=== PATIENT | female | born 1965 | race Caucasian/White ===

== ENCOUNTER 2020-12-20 16:28 | Observation (INO) | payer OTHER ==
[2020-12-20 17:03] LABS: Basophils % 0.8 % (0-1.3); Hematocrit 40.2 % (36.0-45.0); Lymphocytes % 25.5 % (15.3-44.8); MPV 6.7 fL (7.6-11.3); RBC Red Blood Cell Count 4.69 M/uL (3.86-4.86)
[2020-12-20 17:09] LABS: Protime INR 0.93
[2020-12-20] MEDS ORDERED: NITROGLYCERIN 0.4 MG/TAB SL ONE (17:09)
--- NOTE | 2020-12-20 17:15 | RAD REPORT ---
EXAM DESCRIPTION: RAD - Chest Single View - 12/20/2020 5:07 pm CLINICAL HISTORY: CHEST PAIN Chest pain. COMPARISON: No comparisons FINDINGS: Portable technique limits examination quality. The lungs are grossly clear. The heart is normal in size. No displaced fractures. IMPRESSION: No acute intrathoracic process suspected.
[2020-12-20 17:30] LABS: Albumin 3.9 g/dL (3.4-5.0); Bilirubin Direct 0.1 mg/dL (0-0.2); Bilirubin Total 0.4 mg/dL (0.2-1.0); Magnesium 1.7 mg/dL (1.8-2.4); Potassium 4.1 mmol/L (3.5-5.1); Protein, Total 7.7 g/dL (6.4-8.2); Troponin (Emerg Dept Use Only) 0.02 ng/mL (0.0-0.045)
[2020-12-20] MEDS ORDERED: NA CHLORIDE 0.9% 1,000 ML ONE (17:30)
--- NOTE | 2020-12-20 17:45 | RAD REPORT ---
EXAM DESCRIPTION: CT - Head Brain Wo Cont - 12/20/2020 5:35 pm CLINICAL HISTORY: HEADACHE Hypertension, headache, drowsiness COMPARISON: No comparisons TECHNIQUE: All CT scans are performed using dose optimization technique as appropriate and may inclu de automated exposure control or mA/KV adjustment according to patient size. FINDINGS: No intracranial hemorrhage, hydrocephalus or extra-axial fluid collection.No areas of brai n edema or evidence of midline shift. The paranasal sinuses and mastoids are clear. The calvarium is intact. IMPRESSION: No acute intracranial abnormality.
--- NOTE | 2020-12-20 18:16 | ER ---
Nurse's Notes [facility] Name: Yvette Martino Age: 55 yrs Sex: Female : 1965 Arrival Date: 12/20/2020 Time: 16:29 Bed 24 Private MD: Tino Kaur T Diagnosis: Chest pain, unspecified;Hypertensive heart disease without heart failure Presentation: 12/20 16:31 Chief complaint: Patient states: midsternal chest pain started 3 hours ago. Pt is sv clammy at this time. Risk Assessment: Do you want to hurt yourself or someone else? Patient reports no desire to harm self or others. Onset of symptoms was December 20, 2020. 16:31 Method Of Arrival: Ambulatory sv 16:31 Acuity: JAMIE 2 sv 16:32 Coronavirus screen: Client denies travel out of the [place] in the last 14 days. At this sv time, the client does not indicate any symptoms associated with coronavirus-19. Ebola Screen: No symptoms or risks identified at this time. Initial Sepsis Screen: Does the patient meet any 2 criteria? RR > 20 per min. HR > 90 bpm. Yes Does the patient have a suspected source of infection? No. Patient's initial sepsis screen is negative. Historical: - Allergies: 16:31 PENICILLINS; sv 16:31 CEPHALOSPORINS; sv - Home Meds: 19:06 metformin 750 mg Oral Tb24 1 tab twice a day [Active]; Novolin 70/30 InnoLet Insulin hb 100 unit/mL (70-30) Sub-Q inpn 50 unit twice a day [Active]; losartan 50 mg oral tab 1 tab once daily [Active]; - PMHx: 16:31 Diabetes mellitus; Hypertensive disorder; sv 19:06 DM2; HTN; hb - Immunization history:: Client reports receiving the 1st dose of the Covid vaccine. - Social history:: Smoking status: Patient denies any tobacco usage or history of. Screenin:56 Abuse screen: Denies threats or abuse. Denies injuries from another. Nutritional hb screening: No deficits noted. Tuberculosis screening: No symptoms or risk factors identified. Fall Risk None identified. Assessment: 16:57 General: Appears in no apparent distress. uncomfortable, Behavior is calm, cooperative. hb Pain: Pain currently is 7 out of 10 on a pain scale. Neuro: Level of Consciousness is awake, alert, obeys commands, Oriented to person, place, time, situation. Cardiovascular: Reports chest pain, shortness of breath, Patient's skin is warm and dry. Respiratory: Respiratory effort is even, unlabored, Respiratory pattern is regular, symmetrical. GI: No signs and/or symptoms were reported involving the gastrointestinal system. : No signs and/or symptoms were reported regarding the genitourinary system. EENT: No signs and/or symptoms were reported regarding the EENT system. Derm: Skin is pink, warm \\T\\ dry. Musculoskeletal: No signs and/or symptoms reported regarding the musculoskeletal system. 17:59 Reassessment: Patient appears in no apparent distress at this time. Patient and/or hb family updated on plan of care and expected duration. Pain level reassessed. Patient is alert, oriented x 3, equal unlabored respirations, skin warm/dry/pink. 18:45 Reassessment: Pt c/o chest pain and headache 6-7/10. Dr. Hui notified, morphine hb and zofran administered as ordered. Admission ordered, awaiting hospitalist at this time. Vital Signs: 16:32 BP 210 / 90; Pulse 102; Resp 22; Pulse Ox 99% ; Weight 92.08 kg; Height 5 ft. 6 in. sv (167.64 cm); Pain 8/10; 18:46 BP 156 / 75; Pulse 91; Resp 15; Pulse Ox 99% on R/A; Pain 7/10; hb 16:32 Body Mass Index 32.76 (92.08 kg, 167.64 cm) sv ED Course: 16:29 Patient arrived in ED. as 16:29 Tino Kaur MD is Private Physician. as 16:31 Triage completed. sv 16:32 Arm band placed on. sv 16:35 Devonte Mendoza PA is PHCP. cp 16:35 Devonte Hui MD is Attending Physician. cp 16:45 EKG done, by ED staff, reviewed by Devonte THURSTON. em1 16:50 Patient maintains SpO2 saturation greater than 95% on room air. hb 16:51 Inserted saline lock: 20 gauge in left antecubital area, using aseptic technique. Blood hb collected. 16:55 Marissa Roman RN is Primary Nurse. hb 16:56 Patient has correct armband on for positive identification. Bed in low position. Side hb rails up X 1. equipment monitor phototypesetting on. Pulse ox on. NIBP on. 17:07 XRAY Chest (1 view) In Process Unspecified. EDMS 17:19 COVID-19 : Document "Date of Symptom Onset" if Symptomatic. Sent. hb 17:35 CT Head Brain wo Cont In Process Unspecified. EDMS 18:15 Shun Kwan PA is Hospitalizing Provider. cp 12/21 03:04 René Catalan is Hospitalizing Provider. cp Administered Medications: 12/20 07:30 Drug: Nitroglycerin 0.4 mg Route: Sublingual; hb 16:51 Drug: Nitroglycerin 0.4 mg Route: Sublingual; hb 17:13 Drug: Nitroglycerin 0.4 mg Route: Sublingual; hb 18:43 Follow up: Response: No adverse reaction hb 17:19 Drug: Tylenol 1000 mg Route: PO; hb 18:44 Follow up: Response: No adverse reaction hb 17:19 Drug: NS 0.9% 500 ml Route: IV; Rate: bolus; Site: left antecubital; hb 18:43 Follow up: Response: No adverse reaction; IV Status: Completed infusion; IV Intake: hb 500ml 17:55 Drug: Magnesium Sulfate 1 grams Route: IVPB; Infused Over: 1 hrs; Site: right hb antecubital; 17:55 Drug: Aspirin Chewable Tablet 324 mg Route: PO; hb 18:43 Follow up: Response: No adverse reaction hb 18:43 Drug: NS 0.9% 500 ml Route: IV; Rate: 125 ml/hr; Site: left antecubital; hb 18:43 Drug: morphine 4 mg Route: IVP; Site: left antecubital; hb 18:43 Drug: Zofran (Ondansetron) 4 mg Route: IVP; Site: left antecubital; hb Intake: 18:43 IV: 500ml; Total: 500ml. hb Outcome: 18:16 Decision to Hospitalize by Provider. cp 12/21 20:45 Patient left the ED. wg Signatures: Dispatcher [employer] EDMS Manju Ernst RN RN sv Martinez, Amelia as Martinez, Eric em1 Devonte Mendoza PA PA cp Marissa Roman RN RN Ceferino Zarate wg
--- NOTE | 2020-12-20 18:17 | EDPHYS ---
Physician Documentation [facility] Name: Yvette Martino Age: 55 yrs Sex: Female : 1965 Arrival Date: 12/20/2020 Time: 16:29 Bed 24 Private MD: Tino Kaur T ED Physician Devonte Hui HPI: 12/20 16:45 This 55 yrs old Female presents to ER via Ambulatory with complaints of Chest cp Pain. 16:45 The patient or guardian reports chest pain that is located primarily in the substernal cp area. 16:45 Onset: 3 hour(s) ago. The pain does not radiate. Associated signs and symptoms: cp Pertinent positives: diaphoresis, Pertinent negatives: abdominal pain, dizziness, lower extremity pain, lower extremity swelling, shortness of breath, syncope. The chest pain is described as a pressure. Duration: The patient or guardian reports a single episode, that is still ongoing, and unchanged. Severity of pain: in the emergency department the pain is unchanged despite home interventions. Historical: - Allergies: 16:31 PENICILLINS; sv 16:31 CEPHALOSPORINS; sv - Home Meds: 19:06 metformin 750 mg Oral Tb24 1 tab twice a day [Active]; Novolin 70/30 InnoLet Insulin hb 100 unit/mL (70-30) Sub-Q inpn 50 unit twice a day [Active]; losartan 50 mg oral tab 1 tab once daily [Active]; - PMHx: 16:31 Diabetes mellitus; Hypertensive disorder; sv 19:06 DM2; HTN; hb - Immunization history:: Client reports receiving the 1st dose of the Covid vaccine. - Social history:: Smoking status: Patient denies any tobacco usage or history of. ROS: 16:47 Constitutional: Negative for body aches, fever, poor PO intake. cp 16:47 Cardiovascular: Positive for chest pain. cp 16:47 Neuro: Positive for headache, Negative for altered mental status, syncope, weakness. 16:47 Eyes: Negative for injury, pain, redness, and discharge. cp 16:47 ENT: Negative for ear pain, sore throat, difficulty swallowing, difficulty handling cp secretions. 16:47 Respiratory: Negative for cough, shortness of breath, wheezing. 16:47 Abdomen/GI: Negative for abdominal pain, nausea, vomiting, and diarrhea. 16:47 Back: Negative for radiated pain. 16:47 All other systems are negative. Exam: 16:47 ECG was reviewed by the Attending Physician. cp 16:55 Constitutional: The patient appears in no acute distress, alert, awake, cp non-diaphoretic, non-toxic, well developed, well nourished. 16:55 Head/Face: Normocephalic, atraumatic. cp 16:55 Eyes: Periorbital structures: appear normal, Conjunctiva: normal, no exudate, no injection, Sclera: no appreciated abnormality, Lids and lashes: appear normal, bilaterally. 16:55 ENT: External ear(s): are unremarkable, Nose: is normal, Mouth: Lips: moist, Oral mucosa: moist, Posterior pharynx: Airway: no evidence of obstruction, patent. 16:55 Neck: ROM/movement: is normal, is supple, without pain, no range of motions limitations. 16:55 Chest/axilla: Inspection: normal, Palpation: is normal, no crepitus, no tenderness. 16:55 Cardiovascular: Rate: tachycardic, Rhythm: regular, Heart sounds: murmur, not appreciated, Edema: is not appreciated, JVD: is not appreciated. 16:55 Respiratory: the patient does not display signs of respiratory distress, Respirations: normal, no use of accessory muscles, no retractions, labored breathing, is not present, Breath sounds: are clear throughout, no decreased breath sounds, no stridor, no wheezing. 16:55 Abdomen/GI: Inspection: abdomen appears normal, Palpation: abdomen is soft and non-tender, in all quadrants. 16:55 Back: pain, is absent, ROM is normal. 16:55 Neuro: Orientation: to person, place \\T\\ time. Mentation: is normal, Cerebellar function: is grossly normal, Motor: moves all fours, strength is normal, Sensation: is normal. Vital Signs: 16:32 BP 210 / 90; Pulse 102; Resp 22; Pulse Ox 99% ; Weight 92.08 kg; Height 5 ft. 6 in. sv (167.64 cm); Pain 8/10; 18:46 BP 156 / 75; Pulse 91; Resp 15; Pulse Ox 99% on R/A; Pain 7/10; hb 16:32 Body Mass Index 32.76 (92.08 kg, 167.64 cm) sv MDM: 16:39 Patient medically screened. cp 17:00 Differential diagnosis: abnormal EKG, acute myocardial infarction, costochondritis, cp pancreatitis, peptic ulcer disease, pericarditis, pneumonia, pneumothorax, pulmonary embolus, stable angina, thoracic aortic disection, unstable angina. 18:00 Data reviewed: vital signs, nurses notes, lab test result(s), EKG, radiologic studies, cp plain films. 18:00 Test interpretation: by ED physician or midlevel provider: ECG, plain radiologic cp studies. 18:15 The patient was given aspirin in the Emergency Department. cp 18:15 Physician consultation: Shun THURSTON was called at 18:15, was contacted at 18:15, cp regarding admission, to the telemetry unit. patient's condition. 12/20 16:39 Order name: Basic Metabolic Panel; Complete Time: 17:47 cp 12/20 17:47 Interpretation: Normal except: NA 133; GLUC 293; GFR 84. 12/20 16:39 Order name: CBC with Diff; Complete Time: 17:47 12/20 17:48 Interpretation: Normal except: MPV 6.7. cp 12/20 16:39 Order name: LFT's; Complete Time: 17:47 cp 12/20 16:39 Order name: Magnesium; Complete Time: 17:47 cp 12/20 16:39 Order name: NT PRO-BNP; Complete Time: 17:47 cp 12/20 16:39 Order name: PT-INR; Complete Time: 17:47 12/20 16:39 Order name: Troponin (emerg Dept Use Only); Complete Time: 17:47 12/20 17:48 Interpretation: Within normal limits: TROPED 0.02. 12/20 16:48 Order name: COVID-19 : Document "Date of Symptom Onset" if Symptomatic. 12/20 18:48 Order name: SARS-COV-2 RT PCR [facility] 12/20 22:43 Order name: Glucose, Ancillary Testing [facility] 12/20 23:22 Order name: Troponin I [facility] 12/21 02:59 Order name: CBC with Automated Diff [facility] 12/21 03:02 Order name: Troponin I [facility] 12/20 16:39 Order name: XRAY Chest (1 view); Complete Time: 17:47 12/20 16:48 Order name: CT Head Brain wo Cont; Complete Time: 17:47 cp 12/21 03:14 Order name: Comprehensive Metabolic Panel [facility] 12/21 03:14 Order name: Phosphorus [facility] 12/21 03:14 Order name: Lipid Profile [facility] 12/21 03:14 Order name: T4 Free [facility] 12/21 03:14 Order name: Magnesium [facility] 12/21 03:14 Order name: Thyroid Stimulating Hormone [facility] 12/21 03:24 Order name: LDL, Direct [facility] 12/21 03:32 Order name: Hemoglobin A1c [facility] 12/21 10:23 Order name: NM [facility] 12/21 14:41 Order name: Glucose, Ancillary Testing [facility] 12/20 16:39 Order name: EKG; Complete Time: 16:40 cp 12/20 16:39 Order name: Cardiac monitoring; Complete Time: 16:56 cp 12/20 16:39 Order name: EKG - Nurse/Tech; Complete Time: 16:45 cp 12/20 16:39 Order name: IV Saline Lock; Complete Time: 16:56 cp 12/20 16:39 Order name: Labs collected and sent; Complete Time: 16:56 cp 12/20 16:39 Order name: O2 Per Protocol; Complete Time: 16:56 cp 12/20 16:39 Order name: O2 Sat Monitoring; Complete Time: 16:56 cp EC:47 Rate is 99 beats/min. Rhythm is regular. SD interval is normal. QRS interval is normal. cp QT interval is normal. T waves are Inverted in lead aVR. Interpreted by me. Reviewed by me. Administered Medications: 07:30 Drug: Nitroglycerin 0.4 mg Route: Sublingual; hb 16:51 Drug: Nitroglycerin 0.4 mg Route: Sublingual; hb 17:13 Drug: Nitroglycerin 0.4 mg Route: Sublingual; hb 18:43 Follow up: Response: No adverse reaction hb 17:19 Drug: Tylenol 1000 mg Route: PO; hb 18:44 Follow up: Response: No adverse reaction hb 17:19 Drug: NS 0.9% 500 ml Route: IV; Rate: bolus; Site: left antecubital; hb 18:43 Follow up: Response: No adverse reaction; IV Status: Completed infusion; IV Intake: hb 500ml 17:55 Drug: Magnesium Sulfate 1 grams Route: IVPB; Infused Over: 1 hrs; Site: right hb antecubital; 17:55 Drug: Aspirin Chewable Tablet 324 mg Route: PO; hb 18:43 Follow up: Response: No adverse reaction hb 18:43 Drug: NS 0.9% 500 ml Route: IV; Rate: 125 ml/hr; Site: left antecubital; hb 18:43 Drug: morphine 4 mg Route: IVP; Site: left antecubital; hb 18:43 Drug: Zofran (Ondansetron) 4 mg Route: IVP; Site: left antecubital; hb Disposition: 12/22 05:23 Co-signature as Attending Physician, Devonte Hui MD I agree with the assessment and jaqui plan of care. Disposition Summary: 12/20/20 18:16 Hospitalization Ordered Hospitalization Status: Observation cp Condition: Stable cp Problem: new cp Symptoms: have improved cp Bed/Room Type: Standard cp Location: [facility] ER HOLD(12/20/20 19:44) tl1 Room Assignment: ERHOLD-(12/20/20 19:44) tl1 Provider: René Catalan(12/21/20 03:04) cp Diagnosis - Chest pain, unspecified cp - Hypertensive heart disease without heart failure cp Forms: - Medication Reconciliation Form cp - SBAR form cp Signatures: Dispatcher [employer] Manju Fields, RN NADIA Devonte Hui MD MD cha Lasagna, Tonya RN RN 1 Devonte Mendoza PA PA cp Marissa Roman RN RN Corrections: (The following items were deleted from the chart) 12/20 17:50 16:48 CORONAVIRUS ordered. EDPA EDPA 19:44 18:16 Telemetry/MedSurg (observation) cp tl1 19:44 18:16 cp tl1 12/21 03:04 12/20 18:16 Shun Kwan cp cp
[2020-12-20] MEDS ORDERED: MAGNESIUM SULFATE 1 gm IVPB 1 GM/100 ML BAG IV ONE (18:48)
[2020-12-20] MEDS ORDERED: ASPIRIN 81 MG CHEWABLE TABLET ONE (18:48)
[2020-12-20] MEDS ORDERED: ONDANSETRON 4 MG/2 ML VIAL ONE (19:00)
[2020-12-20] MEDS ORDERED: MORPHINE 4 MG/ML SYR ONE (19:00)
--- NOTE | 2020-12-20 19:45 | P.HP ---
Certification for Inpatient Patient admitted to: Observation With expected LOS: <2 Midnights Patient will require the following post-hospital care: None Practitioner: I am a practitioner with admitting privileges, knowledge of patient current condition, hospital course, and medical plan of care. Services: Services provided to patient in accordance with Admission requirements found in Title 42 Section 412.3 of the Code of Federal Regulations Patient History Date of Service: 12/20/20 Reason for admission: ACS rule out History of Present Illness: Ms. Martino is a 55 yo F with DM and HTN who presents with 8/10 substernal chest pain that began at rest. She says she was sitting down at work when her chest started huring and her head started pounding. She describes the pain as a knot in the center of her chest, chest pressure, and radiation to her right side. She says it does not feel like indigestion or heartburn. Pain was relieved after receiving sublingual nitroglycerin x2 in the ED. On arrival, BP was 210/90, now improved after NTG. Denies nausea, diaphoresis. Dad had a history of heart disease. Na 133. GFR 84. Glu 293. Mg 1.7. Home medications list reviewed: Yes - Past Medical/Surgical History Has patient received pneumonia vaccine in the past: No Diabetic: Yes -: HTN -: DM -: 2 C sections - Social History Smoking Status: Never smoker Alcohol use: No CD- Drugs: No Caffeine use: No Place of Residence: Home Review of Systems 10-point ROS is otherwise unremarkable Cardiovascular: Chest Pain Physical Examination - Physical Exam General: Alert, In no apparent distress HEENT: Atraumatic, PERRLA, Mucous membr. moist/pink, EOMI, Sclerae nonicteric Neck: Supple, 2+ carotid pulse no bruit, No LAD, Without JVD or thyroid abnormality Respiratory: Clear to auscultation bilaterally, Normal air movement Cardiovascular: Regular rate/rhythm, Normal S1 S2 Gastrointestinal: Normal bowel sounds, No tenderness Musculoskeletal: No tenderness Integumentary: No rashes Neurological: Normal gait, Normal speech, Normal strength at 5/5 x4 extr, Normal tone, Normal affect Lymphatics: No axilla or inguinal lymphadenopathy - Studies Laboratory Data (last 24 hrs) 12/20/20 16:52: PT 10.7, INR 0.93 12/20/20 16:52: WBC 7.90, Hgb 13.9, Hct 40.2, Plt Count 252 12/20/20 16:52: Sodium 133 L, Potassium 4.1, BUN 18, Creatinine 0.72, Glucose 293 H, Magnesium 1.7 L, Total Bilirubin 0.4, AST 18, ALT 36, Alkaline Phosphat ase 96 Assessment and Plan - Problems (Diagnosis) (1) Chest pain Current Visit: Yes Status: Acute Qualifiers: Chest pain type: unspecified Qualified Code(s): R07.9 - Chest pain, unspecified (2) HTN (hypertension) Current Visit: Yes Status: Chronic Qualifiers: Hypertension type: primary hypertension Qualified Code(s): I10 - Essential (primary) hypertension (3) Diabetes Current Visit: Yes Status: Chronic Qualifiers: Diabetes mellitus type: type 2 Diabetes mellitus alf insulin use: with exterminator helper termite use Diabetes mellitus complication status: without complication Qualified Code(s): E11.9 - Type 2 diabetes mellitus without complications; Z79.4 - roasterman (current) use of insulin - Plan on telemetry, trend troponins, repeat EKG in AM PRN morphine and NTG as needed daily ASA, BB, statin lipid and thyroid panel pending sliding scale insulin and accuchecks, A1c pending DVT ppx Discharge Plan: Home Plan to discharge in: 24 Hours - Advance Directives Does patient have a Living Will: No Does patient have a Durable POA for Healthcare: No - Code Status/Comfort Care Code Status Assessed: Yes (full code ) Critical Care: No Time Spent Managing Pts Care (In Minutes): 70
[2020-12-20] MEDS ORDERED: GABAPENTIN 300 MG CAP PO SCH (22:24)
[2020-12-20] MEDS ORDERED: ATORVASTATIN 40 MG TAB PO SCH (22:24)
[2020-12-20] MEDS ORDERED: ONDANSETRON 4 MG/2 ML VIAL IV PRN (22:24)
[2020-12-20] MEDS ORDERED: NITROGLYCERIN 0.4 MG/TAB SL PRN (22:24)
[2020-12-20] MEDS: INSULIN -REGULAR HUMAN 50 UNIT/0.5 ML ML SQ SCH (22:24)
[2020-12-20] MEDS ORDERED: HYDRALAZINE HCL 20 MG/ML VIAL IV PRN (22:24)
[2020-12-20] MEDS ORDERED: QUETIAPINE 100MG TAB PO SCH (22:24)
[2020-12-20 22:47] VITALS: BMI 32.8
[2020-12-20] MEDS ORDERED: ATORVASTATIN 20 MG TAB ONE (23:00)
[2020-12-20] MEDS ORDERED: INSULIN -REGULAR HUMAN 50 UNIT/0.5 ML ML ONE (23:01)
[2020-12-20 23:43] VITALS: BP 171/78; TEMP 98.3
[2020-12-20] MEDS: ACETAMINOPHEN 500 MG TAB PO PRN (23:50)
[2020-12-21] MEDS ORDERED: ACETAMINOPHEN 500 MG TAB ONE ×3 (00:17→17:47)
[2020-12-21] MEDS ORDERED: MORPHINE 2 MG/ML SYR IV PRN ×2 (01:00→15:00)
[2020-12-21 02:50] LABS: Absolute Lymphocytes (CBC) 2.3 K/uL (0.7-4.9); Basophils % 0.6 % (0-1.3); Hematocrit 35.4 % (36.0-45.0); Lymphocytes % 31.7 % (15.3-44.8); MPV 7.1 fL (7.6-11.3)
[2020-12-21 03:09] LABS: ALT/SGPT 31 U/L (12-78); AST/SGOT 15 U/L (15-37); Albumin 3.4 g/dL (3.4-5.0); Alkaline Phosphatase 80 U/L (45-117); BUN Blood Urea Nitrogen 14 mg/dL (7-18); Bicarbonate 28 mmol/L (21-32); Bilirubin Total 0.3 mg/dL (0.2-1.0); Glucose Level 318 mg/dL (74-106); HDL Cholesterol 29 mg/dL (40-60); Magnesium 1.7 mg/dL (1.8-2.4); Phosphorus 3.6 mg/dL (2.5-4.9); Potassium 4.1 mmol/L (3.5-5.1); Protein, Total 6.7 g/dL (6.4-8.2); Sodium Level 136 mmol/L (136-145)
[2020-12-21 03:24] LABS: LDL, Direct 62 mg/dL (100-129)
[2020-12-21] MEDS ORDERED: METOPROLOL TAR 25 MG TAB PO SCH (06:00)
[2020-12-21] MEDS ORDERED: ENOXAPARIN 40 MG/0.4 ML SQ SCH (09:00)
[2020-12-21] MEDS ORDERED: REGADENOSON 0.4 MG/5 ML SYR IV ONE (09:00)
[2020-12-21] MEDS ORDERED: ASPIRIN EC 81 MG TAB PO SCH (09:00)
[2020-12-21] MEDS: ACETAMINOPHEN 500 MG TAB PO PRN ×2 (09:58→17:30)
--- NOTE | 2020-12-21 10:23 | RAD REPORT ---
EXAM DESCRIPTION: NM - Rest Stress Cardiac Imaging - 12/21/2020 10:12 am CLINICAL HISTORY: chest pain Chest pain. COMPARISON: No comparisons TECHNIQUE: The patient was administered approximately 10mCi of Tc 99m Sestamibi prior to resting SPE CT imaging of the heart. The patient was then administered approximately 30 mCi of Tc 99m Sestamibi f ollowing exercise or pharmacologic stress. Multiplanar SPECT images were reviewed. FINDINGS: No stress induced ischemic defect is seen to suggest stress induced ischemia. No fixed def ect is seen to suggest hibernating myocardium or scarred myocardium. The end diastolic volume is 70 ml, the end systolic volume is 16 ml, and the ejection fraction is 77 %. IMPRESSION: No stress induced ischemia.
[2020-12-21] MEDS: INSULIN -REGULAR HUMAN 50 UNIT/0.5 ML ML SQ SCH (14:50)
[2020-12-21] MEDS ORDERED: ASPIRIN EC 81 MG TAB PO ONE (15:03)
[2020-12-21] MEDS ORDERED: INSULIN -REGULAR HUMAN 50 UNIT/0.5 ML ML ONE (15:04)
[2020-12-21] MEDS ORDERED: METOPROLOL TAR 25 MG TAB ONE (15:04)
[2020-12-21] MEDS ORDERED: ENOXAPARIN 40 MG/0.4 ML SQ ONE (15:06)
[2020-12-21 16:45] VITALS: O2SAT 95
--- NOTE | 2020-12-21 18:05 | P.DS ---
Admission Date: 12/20/20 Discharge Date: 12/21/20 Disposition: DC/TX/REF TO [facility] FOR OP CARE Discharge Condition: FAIR Reason for Admission: ACS rule out - Problems (1) Malignant hypertension Status: Acute (2) Chest pain Status: Acute Qualifiers: Chest pain type: unspecified Qualified Code(s): R07.9 - Chest pain, unspecified (3) Diabetes Status: Chronic Qualifiers: Diabetes mellitus type: type 2 Diabetes mellitus snf insulin use: with snf use Diabetes mellitus complication status: without complication Qualified Code(s): E11.9 - Type 2 diabetes mellitus without complications; Z79.4 - long term care pharmacist (current) use of insulin (4) Hypertriglyceridemia Status: Acute Brief History of Present Illness: 55 yo F with DM and HTN who presents with 8/10 substernal chest pain that began at rest. Patient stated she felt her chest hurting and her head pounding. She describes the pain as a knot in the center of her chest, chest pressure, and radiation to her right side. Pain was relieved after receiving sublingual nitroglycerin x2 in the ED. On arrival, BP was 210/90, now improved after NTG. Denies nausea, diaphoresis. Dad had a history of heart disease. Na 133. GFR 84. Glu 293. Mg 1.7. Initial troponin negative. Patient hospitalized for further management. Hospital Course: Patient placed under observation on the medical floor. Troponin trended negative. Nuclear stress test was was done which did not show any stress- induced ischemia or fixed defect. Patient had a severely elevated blood pressure with improved after SL nitroglycerin. Her symptoms improved with blood pressure control. ACS has been ruled out. She has no stress-induced ischemia. She stated she has been under stress lately due to family related issues. Patient noted to have hypertriglyceridemia. She is prescribed Zetia. Case discussed with Dr. Chacko who will follow the patient next week in the office. Patient deemed stable for discharge. Vital Signs/Physical Exam: Temp Pulse Resp BP Pulse Ox 98.3 F 86 18 171/78 H 98 12/20/20 23:42 12/20/20 23:42 12/20/20 23:42 12/20/20 23:42 12/20/20 23:42 General: Alert, In no apparent distress, Oriented x3 HEENT: Mucous membr. moist/pink Neck: JVD not distended Respiratory: Clear to auscultation bilaterally, Normal air movement Cardiovascular: No edema, Regular rate/rhythm, Normal S1 S2 Gastrointestinal: Soft and benign, Non-distended Musculoskeletal: No swelling Integumentary: No rashes Neurological: Normal strength at 5/5 x4 extr Laboratory Data at Discharge: WBC 7.30 K/uL (4.3-10.9) 12/21/20 02:00 Hgb 12.2 g/dL (12.0-15.0) 12/21/20 02:00 Hct 35.4 % (36.0-45.0) L 12/21/20 02:00 Plt Count 237 K/uL (152-406) 12/21/20 02:00 PT 10.7 SECONDS (9.5-12.5) 12/20/20 16:52 INR 0.93 12/20/20 16:52 Sodium 136 mmol/L (136-145) 12/21/20 02:00 Potassium 4.1 mmol/L (3.5-5.1) 12/21/20 02:00 BUN 14 mg/dL (7-18) 12/21/20 02:00 Creatinine 0.64 mg/dL (0.55-1.3) 12/21/20 02:00 Glucose 318 mg/dL (74-106) H 12/21/20 02:00 Phosphorus 3.6 mg/dL (2.5-4.9) 12/21/20 02:00 Magnesium 1.7 mg/dL (1.8-2.4) L 12/21/20 02:00 Total Bilirubin 0.3 mg/dL (0.2-1.0) 12/21/20 02:00 AST 15 U/L (15-37) 12/21/20 02:00 ALT 31 U/L (12-78) 12/21/20 02:00 Alkaline Phosphatase 80 U/L (45-117) 12/21/20 02:00 Troponin I < 0.02 ng/mL (0.0-0.045) 12/21/20 02:00 Triglycerides 429 mg/dL (<150) H 12/21/20 02:00 Cholesterol 129 mg/dL (<200) 12/21/20 02:00 LDL Cholesterol Direct 62 mg/dL (100-129) L 12/21/20 02:00 HDL Cholesterol 29 mg/dL (40-60) L 12/21/20 02:00 Cholesterol/HDL Ratio 4.45 12/21/20 02:00 Home Medications: Aspirin [Aspirin EC 81 MG] 81 mg PO DAILY #30 tablet. 12/21/20 Ezetimibe [Zetia] 10 mg PO DAILY #30 tab 12/21/20 Metoprolol Tartrate [Lopressor*] 25 mg PO BID 6AM 6PM #60 tab 12/21/20 New Medications: Aspirin [Aspirin EC 81 MG] 81 mg PO DAILY #30 tablet. Metoprolol Tartrate [Lopressor*] 25 mg PO BID 6AM 6PM #60 tab Ezetimibe [Zetia] 10 mg PO DAILY #30 tab Diet: ADA Activity: Ad acacia Followup: Armani Chacko MD [ACTIVE - CAN ADMIT] - 1 Week Tino Kaur MD [Primary Care Provider] -
[2020-12-21] MEDS ORDERED: ATORVASTATIN 40 MG TAB PO SCH ×2 (21:00)
--- NOTE | 2020-12-22 10:03 | TREADPHA ---
DX: CHEST PAIN Date of Study: 12/21/2020 Ht: 5' 6 " Wt: 203 lb 0 oz Consulting Physician: GUERITA MEDICATIONS: TYLENOL, ASPIRIN, LIPITOR, LOVENOX, NEURONTIN, APRESOLINE, NOVOLIN-R, LOPRESSOR, NITROSTAT, ZOFRAN HISTORY: HYPERTENSION, DIABETES MELLITUS PHYSICIAL EXAMINATION: RESTING B.P.: 150/74 RESTING H.R.: 92 RESTING EKG: WITHIN NORMAL LIMITS PROTOCOL: PHARMACOLOGIC EXERCISE TIME: 3:30 B.P. AT PEAK STRESS: 153/76 IMPRESSION: LEXISCAN INJECTED. CARDIOLITE INJECTED (SEE NUCLEAR MEDICINE REPORT). NO COMPLAINTS OF CHEST PAIN. COMPLAINTS OF SHORTNESS OF BREATH. NO ARRHYTHMIAS. NO SUPRAVENTRICULAR TACHYCARDIA/ VENTRICULAR TACHYCARDIA. NO ELECTROCARDIOGRAM CHANGES WITH LEXISCAN.
== END 2020-12-21 20:59 | disposition home or self-care (01) ==
LOC: ER 16:28 → ERHOLD 18:23
PROVIDERS: ADMIT Internal Medicine; ATTEND Internal Medicine
DX: R07.9 Chest pain, unspecified (principal); I10 Essential (primary) hypertension; E11.9 Type 2 diabetes mellitus without complications; E78.1 Pure hyperglyceridemia; Z79.4 Long term (current) use of insulin; Z88.0 Allergy status to penicillin; Z20.822 Contact with and (suspected) exposure to COVID-19; Z82.49 Family history of ischemic heart disease and other diseases of the circulatory system
CPT/HCPCS: 93005; 93017; 85025 ×2; 80048; 36415; 83721; 83735 ×2; 84100; 85610; 80061; 82947 ×2; 80076; 84443; 83036; 84484 ×3; 84439; 80053; 83880; 70450; 71045; 94760 ×2; 78452; 99285; U0003; J1650; J3475; J2785; J7030; J2405; A9500; G0378 ×3